=== PATIENT | female | born 1955 | race Caucasian/White ===

== ENCOUNTER 2019-01-02 09:59 | Observation (INO) | payer MEDICARE, MEDICAID ==
[2019-01-02] VITALS (19 sets, daily range): BP systolic 118–151; BP diastolic 56–93
[~2019-01-02] VITALS: Ht 167.6 cm; Wt 92.0 kg
[~2019-01-02 09:59] MED LIST: ATOR40TA PO; CHOL500049 PO; GLIP2.5T3 PO; LEVO100T9 PO; LOSA1TAB41 PO; METF500T20 PO; NAPR-1144 PO; famotidine 20mg tablet PO ONE; ringers solution, lacted 1,000 ML IV SCH
[2019-01-02 11:22] LABS: BASOPHILS # (AUTO) 0.1 X10'3 (0-0.2); BASOPHILS % (AUTO) 0.7 % (0-1); EOSINOPHILS # (AUTO) 0.4 X10'3 (0-0.9); EOSINOPHILS % (AUTO) 4.2 % (0-6); LYMPHOCYTES # (AUTO) 2.1 X10'3 (1.1-4.8); MEAN CORPUSCULAR HEMOGLOBIN 31.4 PG (27.0-31.0); MEAN CORPUSCULAR HGB CONC 33.7 g/dL (33.0-36.5); MEAN CORPUSCULAR VOLUME 93.1 FL (78-98); MEAN PLATELET VOLUME 10.8 FL (7.4-10.4); MONOCYTES # (AUTO) 0.8 X10'3 (0-0.9); MONOCYTES % (AUTO) 8.3 % (2-12); NEUTROPHILS # (AUTO) 6.5 X10'3 (1.8-7.7); NEUTROPHILS % (AUTO) 65.8 % (42-75); PRE OP HEMATOCRIT 38.1 % (35.0-45.0); PRE OP HEMOGLOBIN 12.8 g/dL (12.0-16.0); PRE OP PLATELET COUNT 253 X10'3 (140-440); RED BLOOD COUNT 4.09 X10'6 (4.20-5.60); RED CELL DISTRIBUTION WIDTH 14.2 % (11.5-14.5)
[2019-01-02 11:30] LABS: PRE OP PROTIME 10.3 SECONDS (9.0-12.0)
[2019-01-02 11:31] LABS: ALBUMIN 3.7 G/DL (3.4-5.0); ALKALINE PHOSPHATASE 52 IU/L (46-116); BLOOD UREA NITROGEN 33 MG/DL (7-18); BUN/CREATININE RATIO 28.9 (6.6-38.0); CHLORIDE 105 MMOL/L (99-107); CREATININE 1.14 MG/DL (0.40-0.90); PRE OP ALT 24 U/L (30-65); PRE OP ANION GAP 12 (8-16); PRE OP AST 20 U/L (10-37); PRE OP BILIRUB, TOTAL 0.3 MG/DL (0.0-1.0); PRE OP GLUCOSE 99 MG/DL (70-104); PRE OP POTASSIUM 3.4 MMOL/L (3.4-5.1); PRE OP SODIUM 142 MMOL/L (135-145); TOTAL CARBON DIOXIDE 25.5 MMOL/L (24-32); TOTAL PROTEIN 7.4 G/DL (6.4-8.2); eGFR 48 ML/MIN
[2019-01-02] MEDS ORDERED: cefazolin/dext.iso 2gm/100ml 100 ML IV ONE (11:40)
[2019-01-02] MEDS ORDERED: ceFAZolin 1,000 MG/D5W 50ML IVPB Premixed bag IV ONE (11:45)
[2019-01-02] MEDS ORDERED: cefazolin/dext.iso 2gm/50ml 50 ML IV ONE (11:50)
[2019-01-02 11:59] LABS: LARGE PLATELETS FEW; PLATELET ESTIMATE NORMAL
[2019-01-02] MEDS ORDERED: ceFAZolin 1000mg inj ONE ×2 (13:04→13:50)
[2019-01-02] MEDS ORDERED: BUPIVAcaine/PF 2.5 mg/ml (0.25%) 30ml vial ONE ×2 (13:04→13:50)
[2019-01-02] MEDS ORDERED: midazolam 2 mg/2 ml injection ONE (14:02)
[2019-01-02] MEDS ORDERED: fentaNYL/PF 50MCG/1 ML 2ML syringe ONE ×2 (14:02)
[2019-01-02] MEDS ORDERED: sevoflurane 250ml liquid IH ONE (14:30)
[2019-01-02] MEDS ORDERED: propofol inj 20 ML IV ONE (15:11)
[2019-01-02] MEDS ORDERED: ePHEDrine 50MG/ML INJ. ONE (15:11)
[2019-01-02] MEDS ORDERED: LIDOcaine 2% (20mg/ml) 5ml vial ONE (15:11)
[2019-01-02] MEDS ORDERED: ondansetron/PF 4mg/2ml inj IV PRN (15:35)
[2019-01-02] MEDS ORDERED: dextrose ORAL solution 15 GM/59 ML bottle PO PRN ×2 (15:45)
[2019-01-02] MEDS ORDERED: glucagon, human recombinant 1mg kit SUBCUT PRN (15:45)
[2019-01-02] MEDS ORDERED: dextrose 50%-water 50ml dispensing syringe IV PRN ×2 (15:45)
[2019-01-02] MEDS ORDERED: MESSAGE TO PHARMACY PO ONE (15:45)
[2019-01-02] MEDS ORDERED: insulin Lispro (HumaLOG) vial - multi-dose SQ SCH (15:45)
[2019-01-02] MEDS ORDERED: meperidine/PF 25mg/ml syringe ONE ×2 (16:00→16:20)
[2019-01-02] MEDS ORDERED: ceFAZolin inj. 1,000 MG in dextrose 5%-water 50ml 50 ML IV SCH (16:00)
--- NOTE | 2019-01-02 16:30 | NUR ---
PRIOR PACU NOTE WAS CHARTED AT THE WRONG TIME, PT ENTERED PACU AT 1515. PAIN WAS CONTROLLED DURING PACU STAY WITH DEMEROL, PAIN LEVEL TRENDING DOWN. VSS. TOLERATING PO FLUIDS WELL. REPORT WAS CALLED TO RECEIVING RN ON SURGICAL FLOOR, PT TRANSFERRED IN STABLE CONDITION. TEETH, BAG OF CLOTHING AND CELL PHONE WITH PT AT TIME OF TRANSFER.
--- NOTE | 2019-01-02 16:30 | NUR ---
Received report from JUSTA Osman in recovery and patient not to floor in room 360A in stable condition, wound vac plugged in and respirations even, VSS no distress will continue to monitor pt.
--- NOTE | 2019-01-02 16:30 | NUR ---
Received from OR via CHELO, accompanied by Anesthesiologist ARASH and report given by Anesthesiolgist. PT SLEEPY, OXYGENATING WELL ON 10 LPM O2 VIA MASK, NO RESP DISTRESS NOTED. PT HAS NO C/O PAIN OR NAUSEA AT THIS TIME. WOUND VAC DSG TO [employer], [facility] [employer]. SX SET TO 125, ORDERS IN EMR. LG GAUZE DSG TO LEFT ABDOMEN, CDI. PIV L WRIST PATENT. CHANGES NOTED TO EKG, REPORTED TO ANESTHESIA AND DR MCGUIRE. EKG DONE. PT TO STAY OVERNIGHT ON TELE MONITOR WHILE WAITING FOR HOME WOUND VAC. VSS.
[2019-01-02 17:16] LABS: HEMOGLOBIN A1C 5.8 % (4.5-6.2)
[2019-01-02] MEDS: Potassium Cl inj 20 MEQ in ringers solution, lacted 1,000 ML IV SCH (17:20)
[2019-01-02] MEDS ORDERED: ceFAZolin 1GM/D5W- ADD-VANTAGE 50 ML IV SCH (17:31)
[2019-01-02] MEDS: HYDROcodone/acetaminophen 10/325mg tab PO PRN ×2 (17:35→21:50)
--- NOTE | 2019-01-02 18:30 | NUR ---
Patient in room [facility] 360. I have received report from CHRISTOPHER MARR and had the opportunity to ask questions and assume patient care.
[2019-01-02] MEDS ORDERED: insulin glargine (Lantus) pen - multi-dose SQ SCH (21:00)
[2019-01-03] VITALS: BP 110/56
[2019-01-03] MEDS: Potassium Cl inj 20 MEQ in ringers solution, lacted 1,000 ML IV SCH ×2 (01:44→12:22)
[2019-01-03] MEDS: HYDROcodone/acetaminophen 10/325mg tab PO PRN ×2 (01:58→05:57)
--- NOTE | 2019-01-03 06:30 | NUR ---
Problems reprioritized. Patient report given, questions answered & plan of care reviewed with LOIDA MARR.
--- NOTE | 2019-01-03 06:30 | NUR ---
Patient in room [facility] 360. I have received report from Tania Marin RN and had the opportunity to ask questions and assume patient care.
[2019-01-03 08:00] VITALS: BP 114/51
[2019-01-03] MEDS ORDERED: losartan 50mg tablet PO SCH (08:00)
[2019-01-03] MEDS ORDERED: levoTHYROXINE 112mcg tablet PO SCH (08:00)
[2019-01-03] MEDS ORDERED: HYDROchlorothiazide 12.5mg capsule PO SCH (08:00)
[2019-01-03] MEDS ORDERED: atorvastatin 20mg tablet PO SCH (08:00)
[2019-01-03 09:30] VITALS: BP 124/55
[2019-01-03 11:00] VITALS: BP 107/40
[2019-01-03] MEDS ORDERED: HYDR-4353 PO (16:21)
--- NOTE | 2019-01-03 16:57 | NUR ---
reviewed discharge instructions and new Rx for Newton with pt, pt verbalized understanding. Written Rx for Newton given to pt. Home wound vac attached to pt and pt educated, verbalized understanding. Pt notified of need to call MD's for follow-up appointments and stated she would call them tomorrow. IV removed and pt removed from tele monitor. Pt dressed in clothes from home and escorted downstairs by PCT for discharge.
== END 2019-01-03 17:19 | disposition home health service (06) ==
LOC: PAS 09:59 → SUR 3N 16:50
PROVIDERS: ADMIT Surgery; ATTEND Surgery
DX: T81.31XA Disruption of external operation (surgical) wound, not elsewhere classified, initial encounter (principal); K80.20 Calculus of gallbladder without cholecystitis without obstruction
CPT/HCPCS: 36415; 49900; 80053; 82948; 83036; 85025; 85610; 85730; 87070; 87075; 87081; 93005; 96365; 96375; G0378; J0690; J2001; J2175; J2250; J2405; J2704; J3010; J3480; J3490; J7120; A4618; A6449; A6550; A7000; J1815; J7060

== ENCOUNTER 2019-01-20 09:10 | Day surgery (SDC) | payer MEDICARE, MEDICAID ==
[~2019-01-20 09:10] MED LIST changes: +HYDR-4353 PO; -famotidine 20mg tablet PO ONE; -ringers solution, lacted 1,000 ML IV SCH
[2019-01-20] MEDS ORDERED: LIDOcaine 2% 5ml jelly ONE ×2 (09:56→10:00)
== END 2019-01-20 11:35 | disposition home or self-care (01) ==
LOC: WOUND CARE 09:10
PROVIDERS: ATTEND Surgery
DX: T81.89XA Other complications of procedures, not elsewhere classified, initial encounter (principal); E11.622 Type 2 diabetes mellitus with other skin ulcer; L98.492 Non-pressure chronic ulcer of skin of other sites with fat layer exposed; E11.42 Type 2 diabetes mellitus with diabetic polyneuropathy; K80.20 Calculus of gallbladder without cholecystitis without obstruction; E03.9 Hypothyroidism, unspecified; Z86.19 Personal history of other infectious and parasitic diseases; Y83.8 Other surgical procedures as the cause of abnormal reaction of the patient, or of later complication, without mention of misadventure at the time of the procedure
CPT/HCPCS: 11045; 97605; A4456; A4663; A6021; A6154; A6212

== ENCOUNTER 2019-01-27 08:44 | Outpatient (CLI) | payer MEDICARE, MEDICAID | END 2019-01-27 10:25 | disposition home or self-care (01) | LOC: WOUND CARE 08:44 → EDSTATUS 09:00 → WOUND CARE 10:25 | PROVIDERS: ATTEND Surgery | DX: T81.89XD Other complications of procedures, not elsewhere classified, subsequent encounter (principal); E11.622 Type 2 diabetes mellitus with other skin ulcer; L98.492 Non-pressure chronic ulcer of skin of other sites with fat layer exposed; E11.42 Type 2 diabetes mellitus with diabetic polyneuropathy; K80.20 Calculus of gallbladder without cholecystitis without obstruction; E03.9 Hypothyroidism, unspecified; Z86.19 Personal history of other infectious and parasitic diseases; Y83.8 Other surgical procedures as the cause of abnormal reaction of the patient, or of later complication, without mention of misadventure at the time of the procedure | CPT/HCPCS: 82948; 97605; A4663 ==

== ENCOUNTER 2019-02-01 13:29 | Inpatient (IN) | payer MEDICARE, MEDICAID ==
[2019-02-01] VITALS (12 sets, daily range): BP systolic 92–137; BP diastolic 47–67
[~2019-02-01] VITALS: Ht 167.6 cm; Wt 88.6 kg
[2019-02-01 15:27] LABS: ALBUMIN 2.4 G/DL (3.4-5.0); ANION GAP 13 (8-16); BASOPHILS % (AUTO) 0.2 % (0-1); BLOOD UREA NITROGEN 34 MG/DL (7-18); BUN/CREATININE RATIO 19.4 (6.6-38.0); CALCIUM 9.6 MG/DL (8.5-10.1); CHLORIDE 103 MMOL/L (99-107); CREATININE 1.75 MG/DL (0.40-0.90); EOSINOPHILS # (AUTO) 0.1 X10'3 (0-0.9); EOSINOPHILS % (AUTO) 1.2 % (0-6); GLUCOSE 111 MG/DL (70-104); HEMATOCRIT 33.4 % (35.0-45.0); HEMOGLOBIN 11.1 g/dl (12.0-16.0); LYMPHOCYTES # (AUTO) 1.3 X10'3 (1.1-4.8); LYMPHOCYTES % (AUTO) 10.4 % (21-51); MEAN CORPUSCULAR HEMOGLOBIN 30.4 PG (27.0-31.0); MEAN CORPUSCULAR HGB CONC 33.2 g/dL (33.0-36.5); MEAN CORPUSCULAR VOLUME 91.4 FL (78-98); MEAN PLATELET VOLUME 8.9 FL (7.4-10.4); MONOCYTES # (AUTO) 0.9 X10'3 (0-0.9); MONOCYTES % (AUTO) 7.4 % (2-12); NEUTROPHILS # (AUTO) 10.2 X10'3 (1.8-7.7); NEUTROPHILS % (AUTO) 80.8 % (42-75); PLATELET COUNT 452 X10'3 (140-440); POTASSIUM 3.8 MMOL/L (3.5-5.1); RED BLOOD COUNT 3.65 X10'6 (4.20-5.60); RED CELL DISTRIBUTION WIDTH 14.1 % (11.5-14.5); SODIUM 140 MMOL/L (135-145); TOTAL CARBON DIOXIDE 24.2 MMOL/L (24-32); WHITE BLOOD COUNT 12.6 X10'3 (4.5-11.0); eGFR 29 ML/MIN
[2019-02-01 15:31] LABS: PARTIAL THROMBOPLASTIN TIME 25 SECONDS (22-32)
--- NOTE | 2019-02-01 16:32 | NUR ---
Received patient from admitting, vital signs stable, pt in bed comfortable, no distress, call light in reach. will continue to monitor.
[2019-02-01] MEDS: dextrose 5%-1/2 normal saline 1,000 ML IV SCH (16:55)
[2019-02-01] MEDS ORDERED: ringers solution, lacted 1,000 ML IV SCH (18:27)
[2019-02-01] MEDS ORDERED: labetalol 20mg/4ml (5mg/ml) syringe IV PRN (18:30)
[2019-02-01] MEDS ORDERED: morphine 4 MG/ML inj SYRINge IV PRN ×2 (18:30)
[2019-02-01] MEDS ORDERED: fentaNYL/PF 50MCG/1 ML 2ML syringe IV PRN (18:30)
[2019-02-01] MEDS ORDERED: enalaprilat dihydrate 2.5mg/2ml vial IV PRN (18:30)
[2019-02-01] MEDS ORDERED: ondansetron/PF 4mg/2ml inj IV PRN ×2 (18:30→19:55)
--- NOTE | 2019-02-01 18:36 | NUR ---
Report given to JUSTA Lee.
[2019-02-01] MEDS ORDERED: clindamycin phosphate 150mg/ml inj. ONE (18:45)
[2019-02-01] MEDS ORDERED: gentamicin 40 MG/1 ML inj ONE (18:45)
[2019-02-01 19:00] LABS: CLARITY,URINE CLEAR (Clear); COLOR,URINE YELLOW (Yellow); GLUCOSE, URINE NEGATIVE (Neg); KETONES,URINE NEGATIVE (Neg); LEUKOCYTE ESTERASE ,URINE NEGATIVE (Neg); NITRITES, URINE NEGATIVE (Neg); OCCULT BLOOD,URINE NEGATIVE (Neg); PH,URINE 5.5 (4.8-8.0); PROTEIN,URINE NEGATIVE (Neg); UA COLLECTION TYPE CLN CATCH MIDSTREAM; UROBILINOGEN,URINE 0.2 E.U/dL (0.2-1.0)
[2019-02-01] MEDS ORDERED: fentaNYL/PF 50MCG/1 ML 2ML syringe ONE (19:03)
[2019-02-01] MEDS ORDERED: midazolam 2 mg/2 ml injection ONE (19:04)
[2019-02-01] MEDS ORDERED: etomidate 2mg/ml inj. ONE ×3 (19:05→19:09)
[2019-02-01] MEDS ORDERED: sevoflurane 250ml liquid IH ONE (19:09)
[2019-02-01] MEDS ORDERED: ondansetron/PF 4mg/2ml inj ONE (19:09)
[2019-02-01] MEDS ORDERED: albumin (Human) 5% 250ml 250 ML IV ONE (19:37)
[2019-02-01] MEDS ORDERED: HYDROmorphone 1 mg/ml syringe IV PRN (19:55)
[2019-02-01] MEDS: piperacillin/tazo 4.5gm/100ml 100 ML IV SCH (20:00)
--- NOTE | 2019-02-01 20:00 | NUR ---
Received from OR via BED , accompanied by Anesthesiologist DR VASQUEZ and report given by Anesthesiolgist. PATIENT WAKING UP, V/S WNL, NEUROVASCULAR CHECKS INTACT, 20G PIV LUE, SCD ON, WV TO ABDOMEN CDI WITH 125 CONTINOUS SUCTION W/ NO LEAKS DETECTED,
[2019-02-01] MEDS: fentaNYL/PF 50MCG/1 ML 2ML syringe IV PRN ×2 (20:12→20:21)
--- NOTE | 2019-02-01 20:30 | NUR ---
PATIENT WAKING UP, V/S WNL, NEUROVASCULAR CHECKS INTACT, 20G PIV LUE, SCD ON, WV TO ABDOMEN CDI WITH 125 CONTINOUS SUCTION W/ NO LEAKS DETECTED, . TAKEN TO 344B WITH ALL BELONGINGS AND HOOKED UP TO MONITORS IN ROOM AND REPORT GIVEN TO SCORE CALLER WHO HAS TAKEN OVER PATIENT CARE. TURP
[2019-02-01] MEDS: HYDROcodone/acetaminophen 10/325mg tab PO PRN (22:35)
[2019-02-02] MEDS: normal saline 1000ml 1,000 ML IV SCH ×5 (00:19→16:35)
[2019-02-02] MEDS: dextrose 5%-1/2 normal saline 1,000 ML IV SCH (00:20)
[2019-02-02 04:00] VITALS: BP 116/74
[2019-02-02] MEDS: HYDROcodone/acetaminophen 10/325mg tab PO PRN ×5 (04:38→22:58)
[2019-02-02 06:30] VITALS: BP 101/61
--- NOTE | 2019-02-02 08:15 | NUR ---
Patient in room [facility] 344. I have received report from JUSTA Lee and had the opportunity to ask questions and assume patient care.
[2019-02-02 08:17] LABS: BASOPHILS % (AUTO) 0.4 % (0-1); EOSINOPHILS # (AUTO) 0.3 X10'3 (0-0.9); EOSINOPHILS % (AUTO) 3.1 % (0-6); HEMATOCRIT 29.7 % (35.0-45.0); HEMOGLOBIN 9.9 g/dl (12.0-16.0); LYMPHOCYTES # (AUTO) 2.1 X10'3 (1.1-4.8); LYMPHOCYTES % (AUTO) 22.3 % (21-51); MEAN CORPUSCULAR HEMOGLOBIN 30.5 PG (27.0-31.0); MEAN CORPUSCULAR HGB CONC 33.2 g/dL (33.0-36.5); MEAN PLATELET VOLUME 8.9 FL (7.4-10.4); MONOCYTES # (AUTO) 0.8 X10'3 (0-0.9); MONOCYTES % (AUTO) 9.1 % (2-12); NEUTROPHILS % (AUTO) 65.1 % (42-75); PLATELET COUNT 364 X10'3 (140-440); RED BLOOD COUNT 3.23 X10'6 (4.20-5.60); RED CELL DISTRIBUTION WIDTH 13.5 % (11.5-14.5); WHITE BLOOD COUNT 9.3 X10'3 (4.5-11.0)
[2019-02-02 08:33] LABS: ALANINE AMINOTRANSFERASE 81 U/L (12-78); ALBUMIN 2.3 G/DL (3.4-5.0); ALBUMIN/GLOBULIN RATIO 0.6 (1.1-1.5); ALKALINE PHOSPHATASE 68 IU/L (46-116); ANION GAP 11 (8-16); ASPARTATE AMINO TRANSFERASE 76 U/L (10-37); BILIRUBIN,TOTAL 0.3 MG/DL (0.1-1.0); BLOOD UREA NITROGEN 26 MG/DL (7-18); BUN/CREATININE RATIO 17.1 (6.6-38.0); CALCIUM 7.7 MG/DL (8.5-10.1); CHLORIDE 108 MMOL/L (99-107); CREATININE 1.52 MG/DL (0.40-0.90); GLUCOSE 99 MG/DL (70-104); POTASSIUM 4.1 MMOL/L (3.5-5.1); SODIUM 144 MMOL/L (135-145); TOTAL CARBON DIOXIDE 25.3 MMOL/L (24-32); TOTAL PROTEIN 6.4 G/DL (6.4-8.2); eGFR 35 ML/MIN
--- NOTE | 2019-02-02 08:34 | NUR ---
Patient very upset that she has not received her breakfast tray. I advised patient that I called down to dietary and they are aware she is upset that she has not gotten her breakfast tray. I asked them to send it up gustavo. Patient states " I am starving to , I don't know why they said I was nothing by mouth when I had a turkey sandwich last night. Also, the nurse before you at ten minutes to 8 said she ordered my breakfast and is still is not here. I advised patient that I asked the kitchen to send tray up GUSTAVO and I could not give a specific time. I advised patient that if the tray was not up her by 0845 she could call me back in the room and let me know. Patient is very upset stated " It took 10 nurses to even get crackers this morning, you are starving me to this hospital sucks"
[2019-02-02] MEDS: piperacillin/tazo 4.5gm/100ml 100 ML IV SCH ×2 (09:28→20:08)
[2019-02-02 11:00] VITALS: BP 99/53
--- NOTE | 2019-02-02 16:29 | NUR ---
Pt admit with abdominal wound infection s/p drainage of seroma. Pt now s/p I&D and continues with wound VAC. Pt seen at [facility] provided with written and verbal protein education with CHRISTOPHER contact information. Pt currently on a CHO controlled diet documented with 75-100% PO intake meeting nutrient needs. Pt with food requests for dinner tonight and lunch tomorrow that were d/w dietary. [facility] 02/01. Will continue to follow. Recommendations: 1) Continue CHO controlled diet 2) Wt per rx Addendum: 02/02/19 at [address] Amended: Links added.
--- NOTE | 2019-02-02 18:10 | NUR ---
Problems reprioritized. Patient report given, questions answered & plan of care reviewed with JUSTA Hernadez.
[2019-02-02 18:30] VITALS: BP 128/72
--- NOTE | 2019-02-02 18:33 | NUR ---
Received report from Joycelyn MARR pt is awake and alert requesting a roast beef sandwich expressing frustration that she did not get the sandwich with dinner when she requested it earlier in the day, call light and items of freq use within reach.
[2019-02-02] MEDS: lactobacillus rhamnosus 10,000 MMU CELLS/CAPSULE PO SCH (20:07)
[2019-02-03 00:23] VITALS: BP 109/50
[2019-02-03] MEDS: HYDROcodone/acetaminophen 10/325mg tab PO PRN ×2 (02:58→07:49)
--- NOTE | 2019-02-03 06:43 | NUR ---
Gave report to Angelina MARR pt is resting on RA in no apparent distress, call light and items of freq use within reach.
[2019-02-03 07:10] VITALS: BP 131/53
[2019-02-03] MEDS: lactobacillus rhamnosus 10,000 MMU CELLS/CAPSULE PO SCH (07:48)
[2019-02-03] MEDS: piperacillin/tazo 4.5gm/100ml 100 ML IV SCH (07:48)
[2019-02-03 11:00] VITALS: BP 96/41
[2019-02-03] MEDS ORDERED: AMOX-422 PO (13:33)
--- NOTE | 2019-02-03 15:34 | NUR ---
Patient discharged home with family member. Stable and appropriate. All belongings taken from room. IV removed. New prescription called into [facility] [address] Wound vac changed to patients home wound vac.
== END 2019-02-03 15:17 | disposition home health service (06) | DRG 857 ==
LOC: SUR 3N 14:02
PROVIDERS: ADMIT Surgery; ATTEND Surgery
PROC: 0HD7XZZ Extraction of Abdomen Skin, External Approach (ICD-10-PCS; 2019-02-01)
PROC: 0W9F0ZZ Drainage of Abdominal Wall, Open Approach (ICD-10-PCS; principal; 2019-02-01 19:09)
DX: T81.41XA Infection following a procedure, superficial incisional surgical site, initial encounter (principal); T81.31XA Disruption of external operation (surgical) wound, not elsewhere classified, initial encounter; L76.34 Postprocedural seroma of skin and subcutaneous tissue following other procedure; B19.20 Unspecified viral hepatitis C without hepatic coma; E03.9 Hypothyroidism, unspecified; Y83.8 Other surgical procedures as the cause of abnormal reaction of the patient, or of later complication, without mention of misadventure at the time of the procedure; E11.42 Type 2 diabetes mellitus with diabetic polyneuropathy; I10 Essential (primary) hypertension; Z79.899 Other long term (current) drug therapy; Y92.89 Other specified places as the place of occurrence of the external cause
CPT/HCPCS: 36415; 71045; 76937; 80048; 80053; 81003; 82948; 85025; 85610; 85730; 87081; 93005; 99285; A4618; A6550; A7000; G0378; J1580; J2250; J2405; J2543; J3010; J3490; J7030; J7120; P9045

== ENCOUNTER 2019-02-10 08:51 | Day surgery (SDC) | payer MEDICARE, MEDICAID ==
[~2019-02-10 08:51] MED LIST changes: +AMOX-422 PO; -HYDR-4353 PO
== END 2019-02-10 11:56 | disposition home or self-care (01) ==
LOC: WOUND CARE 08:51
PROVIDERS: ATTEND Surgery
DX: T81.89XD Other complications of procedures, not elsewhere classified, subsequent encounter (principal); E11.622 Type 2 diabetes mellitus with other skin ulcer; L98.492 Non-pressure chronic ulcer of skin of other sites with fat layer exposed; E11.42 Type 2 diabetes mellitus with diabetic polyneuropathy; K80.20 Calculus of gallbladder without cholecystitis without obstruction; E03.9 Hypothyroidism, unspecified; Z86.19 Personal history of other infectious and parasitic diseases; Y83.8 Other surgical procedures as the cause of abnormal reaction of the patient, or of later complication, without mention of misadventure at the time of the procedure
CPT/HCPCS: 36416; 82948; 97597; A4456; A4663

== ENCOUNTER 2019-02-17 08:50 | Outpatient (CLI) | payer MEDICARE, MEDICAID ==
[~2019-02-17 08:50] MED LIST changes: -AMOX-422 PO
[2019-02-17] MEDS ORDERED: LIDOcaine 2% 5ml jelly ONE ×2 (09:41→09:48)
== END 2019-02-17 11:20 | disposition home or self-care (01) ==
LOC: WOUND CARE 08:50 → EDSTATUS 09:00 → WOUND CARE 11:20
PROVIDERS: ATTEND Surgery
DX: T81.89XD Other complications of procedures, not elsewhere classified, subsequent encounter (principal); E11.622 Type 2 diabetes mellitus with other skin ulcer; L98.492 Non-pressure chronic ulcer of skin of other sites with fat layer exposed; E11.42 Type 2 diabetes mellitus with diabetic polyneuropathy; K80.20 Calculus of gallbladder without cholecystitis without obstruction; E03.9 Hypothyroidism, unspecified; Z86.19 Personal history of other infectious and parasitic diseases; Z79.899 Other long term (current) drug therapy; Y83.8 Other surgical procedures as the cause of abnormal reaction of the patient, or of later complication, without mention of misadventure at the time of the procedure
CPT/HCPCS: 36416; 82948; 97605; A4456; A4663

== ENCOUNTER 2019-02-24 09:00 | Outpatient (CLI) | payer MEDICARE, MEDICAID ==
[2019-02-24] MEDS ORDERED: LIDOcaine 2% 5ml jelly ONE (09:32)
== END 2019-02-24 11:35 | disposition home or self-care (01) ==
LOC: WOUND CARE 09:00 → EDSTATUS 09:00 → WOUND CARE 11:35
PROVIDERS: ATTEND Surgery
DX: T81.89XD Other complications of procedures, not elsewhere classified, subsequent encounter (principal); E11.622 Type 2 diabetes mellitus with other skin ulcer; L98.492 Non-pressure chronic ulcer of skin of other sites with fat layer exposed; E11.42 Type 2 diabetes mellitus with diabetic polyneuropathy; K80.20 Calculus of gallbladder without cholecystitis without obstruction; E03.9 Hypothyroidism, unspecified; Z86.19 Personal history of other infectious and parasitic diseases; Z79.899 Other long term (current) drug therapy; Y83.8 Other surgical procedures as the cause of abnormal reaction of the patient, or of later complication, without mention of misadventure at the time of the procedure
CPT/HCPCS: 36416; 82948; 97605; A4456; A4663

== ENCOUNTER 2019-03-03 08:58 | Outpatient (CLI) | payer MEDICARE, MEDICAID ==
[2019-03-03] MEDS ORDERED: LIDOcaine 2% 5ml jelly ONE (09:38)
== END 2019-03-03 10:53 | disposition home or self-care (01) ==
LOC: WOUND CARE 08:58 → EDSTATUS 09:00 → WOUND CARE 10:53
PROVIDERS: ATTEND Surgery
DX: T81.89XD Other complications of procedures, not elsewhere classified, subsequent encounter (principal); E11.622 Type 2 diabetes mellitus with other skin ulcer; L98.492 Non-pressure chronic ulcer of skin of other sites with fat layer exposed; E11.42 Type 2 diabetes mellitus with diabetic polyneuropathy; K80.20 Calculus of gallbladder without cholecystitis without obstruction; E03.9 Hypothyroidism, unspecified; Z86.19 Personal history of other infectious and parasitic diseases; Z79.899 Other long term (current) drug therapy; Y83.8 Other surgical procedures as the cause of abnormal reaction of the patient, or of later complication, without mention of misadventure at the time of the procedure
CPT/HCPCS: 36416; 82948; 87070; 87075; 87102; 97605; A4456; A4663

== ENCOUNTER 2019-03-10 09:00 | Outpatient (CLI) | payer MEDICARE, MEDICAID ==
[2019-03-10] MEDS ORDERED: LIDOcaine 2% 5ml jelly ONE (09:36)
== END 2019-03-10 10:50 | disposition home or self-care (01) ==
LOC: EDSTATUS 09:00 → WOUND CARE 09:00
PROVIDERS: ATTEND Surgery
DX: T81.89XD Other complications of procedures, not elsewhere classified, subsequent encounter (principal); E11.622 Type 2 diabetes mellitus with other skin ulcer; L98.492 Non-pressure chronic ulcer of skin of other sites with fat layer exposed; E11.42 Type 2 diabetes mellitus with diabetic polyneuropathy; K80.20 Calculus of gallbladder without cholecystitis without obstruction; E03.9 Hypothyroidism, unspecified; I10 Essential (primary) hypertension; Z86.19 Personal history of other infectious and parasitic diseases; Z79.899 Other long term (current) drug therapy; Y83.8 Other surgical procedures as the cause of abnormal reaction of the patient, or of later complication, without mention of misadventure at the time of the procedure
CPT/HCPCS: 36416; 82948; 97605; A4456; A4663

== ENCOUNTER 2019-03-17 08:58 | Day surgery (SDC) | payer MEDICARE, MEDICAID ==
[2019-03-17] MEDS ORDERED: LIDOcaine 2% 5ml jelly ONE (09:27)
== END 2019-03-17 10:35 | disposition home or self-care (01) ==
LOC: WOUND CARE 08:58
PROVIDERS: ATTEND Surgery
DX: T81.89XD Other complications of procedures, not elsewhere classified, subsequent encounter (principal); E11.622 Type 2 diabetes mellitus with other skin ulcer; L98.492 Non-pressure chronic ulcer of skin of other sites with fat layer exposed; E11.42 Type 2 diabetes mellitus with diabetic polyneuropathy; K80.20 Calculus of gallbladder without cholecystitis without obstruction; E03.9 Hypothyroidism, unspecified; I10 Essential (primary) hypertension; Z86.19 Personal history of other infectious and parasitic diseases; Z79.899 Other long term (current) drug therapy; Y83.8 Other surgical procedures as the cause of abnormal reaction of the patient, or of later complication, without mention of misadventure at the time of the procedure
CPT/HCPCS: 36416; 82948; 97597; A4663

== ENCOUNTER 2019-03-31 08:44 | Day surgery (SDC) | payer MEDICARE, MEDICAID ==
[2019-03-31] MEDS ORDERED: LIDOcaine/PRILOcaine 5gm cream TP ONE (09:10)
== END 2019-03-31 10:33 | disposition home or self-care (01) ==
LOC: WOUND CARE 08:44
PROVIDERS: ATTEND Surgery
DX: T81.89XD Other complications of procedures, not elsewhere classified, subsequent encounter (principal); E11.622 Type 2 diabetes mellitus with other skin ulcer; L98.492 Non-pressure chronic ulcer of skin of other sites with fat layer exposed; E11.42 Type 2 diabetes mellitus with diabetic polyneuropathy; K80.20 Calculus of gallbladder without cholecystitis without obstruction; E03.9 Hypothyroidism, unspecified; I10 Essential (primary) hypertension; Z86.19 Personal history of other infectious and parasitic diseases; Z79.899 Other long term (current) drug therapy; Y83.8 Other surgical procedures as the cause of abnormal reaction of the patient, or of later complication, without mention of misadventure at the time of the procedure
CPT/HCPCS: 36416; 82948; 97597; A4456; A4663

== ENCOUNTER 2019-04-07 08:42 | Day surgery (SDC) | payer MEDICARE, MEDICAID ==
[2019-04-07] MEDS ORDERED: LIDOcaine 2% 5ml jelly ONE (09:16)
== END 2019-04-07 10:20 | disposition home or self-care (01) ==
LOC: WOUND CARE 08:42
PROVIDERS: ATTEND Surgery
DX: T81.89XD Other complications of procedures, not elsewhere classified, subsequent encounter (principal); E11.622 Type 2 diabetes mellitus with other skin ulcer; L98.492 Non-pressure chronic ulcer of skin of other sites with fat layer exposed; E11.42 Type 2 diabetes mellitus with diabetic polyneuropathy; K80.20 Calculus of gallbladder without cholecystitis without obstruction; E03.9 Hypothyroidism, unspecified; I10 Essential (primary) hypertension; Z86.19 Personal history of other infectious and parasitic diseases; Z79.899 Other long term (current) drug therapy; Y83.8 Other surgical procedures as the cause of abnormal reaction of the patient, or of later complication, without mention of misadventure at the time of the procedure
CPT/HCPCS: 36416; 82948; 97605; A4663

== ENCOUNTER 2019-04-14 08:50 | Day surgery (SDC) | payer MEDICARE, MEDICAID ==
[2019-04-14] MEDS ORDERED: LIDOcaine 2% 5ml jelly ONE ×2 (09:23)
== END 2019-04-14 10:50 | disposition home or self-care (01) ==
LOC: WOUND CARE 08:50
PROVIDERS: ATTEND Surgery
DX: T81.89XD Other complications of procedures, not elsewhere classified, subsequent encounter (principal); E11.622 Type 2 diabetes mellitus with other skin ulcer; L98.492 Non-pressure chronic ulcer of skin of other sites with fat layer exposed; E11.42 Type 2 diabetes mellitus with diabetic polyneuropathy; K80.20 Calculus of gallbladder without cholecystitis without obstruction; E03.9 Hypothyroidism, unspecified; I10 Essential (primary) hypertension; Z86.19 Personal history of other infectious and parasitic diseases; Z79.899 Other long term (current) drug therapy; Y83.8 Other surgical procedures as the cause of abnormal reaction of the patient, or of later complication, without mention of misadventure at the time of the procedure
CPT/HCPCS: 82948; 97597; A4456; A4663

== ENCOUNTER 2019-04-20 08:50 | Day surgery (SDC) | payer MEDICARE, MEDICAID ==
[2019-04-20] MEDS ORDERED: LIDOcaine/PRILOcaine 5gm cream TP ONE (09:01)
== END 2019-04-20 10:22 | disposition home or self-care (01) ==
LOC: WOUND CARE 08:50
PROVIDERS: ATTEND Nurse Practitioner Family
DX: T81.89XD Other complications of procedures, not elsewhere classified, subsequent encounter (principal); E11.622 Type 2 diabetes mellitus with other skin ulcer; L98.492 Non-pressure chronic ulcer of skin of other sites with fat layer exposed; E11.42 Type 2 diabetes mellitus with diabetic polyneuropathy; K80.20 Calculus of gallbladder without cholecystitis without obstruction; E03.9 Hypothyroidism, unspecified; I10 Essential (primary) hypertension; Z86.19 Personal history of other infectious and parasitic diseases; Z79.899 Other long term (current) drug therapy; Y83.8 Other surgical procedures as the cause of abnormal reaction of the patient, or of later complication, without mention of misadventure at the time of the procedure
CPT/HCPCS: 36416; 82948; 97597; A4456; A4663

== ENCOUNTER 2019-04-28 08:50 | Day surgery (SDC) | payer MEDICARE, MEDICAID ==
[2019-04-28] MEDS ORDERED: LIDOcaine 2% 5ml jelly ONE ×2 (09:42)
== END 2019-04-28 10:42 | disposition home or self-care (01) ==
LOC: WOUND CARE 08:50
PROVIDERS: ATTEND Surgery
DX: T81.89XD Other complications of procedures, not elsewhere classified, subsequent encounter (principal); E11.622 Type 2 diabetes mellitus with other skin ulcer; L98.492 Non-pressure chronic ulcer of skin of other sites with fat layer exposed; E11.42 Type 2 diabetes mellitus with diabetic polyneuropathy; I10 Essential (primary) hypertension; E03.9 Hypothyroidism, unspecified; K80.20 Calculus of gallbladder without cholecystitis without obstruction; Z79.899 Other long term (current) drug therapy; Z86.19 Personal history of other infectious and parasitic diseases; Y83.8 Other surgical procedures as the cause of abnormal reaction of the patient, or of later complication, without mention of misadventure at the time of the procedure
CPT/HCPCS: 36416; 82948; 97597; A4456; A4663; A6250

== ENCOUNTER 2019-05-12 08:45 | Day surgery (SDC) | payer MEDICARE, MEDICAID | END 2019-05-12 11:07 | disposition home or self-care (01) | LOC: WOUND CARE 08:45 | PROVIDERS: ATTEND Surgery | DX: T81.89XD Other complications of procedures, not elsewhere classified, subsequent encounter (principal); E11.622 Type 2 diabetes mellitus with other skin ulcer; L98.492 Non-pressure chronic ulcer of skin of other sites with fat layer exposed; E11.42 Type 2 diabetes mellitus with diabetic polyneuropathy; I10 Essential (primary) hypertension; E03.9 Hypothyroidism, unspecified; K80.20 Calculus of gallbladder without cholecystitis without obstruction; Z79.899 Other long term (current) drug therapy; Z86.19 Personal history of other infectious and parasitic diseases; Y83.8 Other surgical procedures as the cause of abnormal reaction of the patient, or of later complication, without mention of misadventure at the time of the procedure | CPT/HCPCS: 36416; 82948; 97597; A4663 ==

== ENCOUNTER 2019-05-19 08:57 | Day surgery (SDC) | payer MEDICARE, MEDICAID | END 2019-05-19 09:55 | disposition home or self-care (01) | LOC: WOUND CARE 08:57 | PROVIDERS: ATTEND Surgery | DX: T81.89XD Other complications of procedures, not elsewhere classified, subsequent encounter (principal); E11.622 Type 2 diabetes mellitus with other skin ulcer; L98.492 Non-pressure chronic ulcer of skin of other sites with fat layer exposed; E11.42 Type 2 diabetes mellitus with diabetic polyneuropathy; I10 Essential (primary) hypertension; E03.9 Hypothyroidism, unspecified; K80.20 Calculus of gallbladder without cholecystitis without obstruction; Z79.899 Other long term (current) drug therapy; Z86.19 Personal history of other infectious and parasitic diseases; Y83.8 Other surgical procedures as the cause of abnormal reaction of the patient, or of later complication, without mention of misadventure at the time of the procedure | CPT/HCPCS: 36416; 82948; 97597; A4663; A6021; A6212 ==

== ENCOUNTER 2019-05-26 08:46 | Day surgery (SDC) | payer MEDICARE, MEDICAID ==
[2019-05-26] MEDS ORDERED: LIDOcaine 2% 5ml jelly ONE (09:13)
== END 2019-05-26 10:22 | disposition home or self-care (01) ==
LOC: WOUND CARE 08:46
PROVIDERS: ATTEND Surgery
DX: T81.89XD Other complications of procedures, not elsewhere classified, subsequent encounter (principal); E11.622 Type 2 diabetes mellitus with other skin ulcer; L98.492 Non-pressure chronic ulcer of skin of other sites with fat layer exposed; E11.42 Type 2 diabetes mellitus with diabetic polyneuropathy; I10 Essential (primary) hypertension; E03.9 Hypothyroidism, unspecified; K80.20 Calculus of gallbladder without cholecystitis without obstruction; Z79.899 Other long term (current) drug therapy; Z86.19 Personal history of other infectious and parasitic diseases; Y83.8 Other surgical procedures as the cause of abnormal reaction of the patient, or of later complication, without mention of misadventure at the time of the procedure
CPT/HCPCS: 36416; 82948; G0463; A4663; A6021; A6154; A6212

== ENCOUNTER 2019-06-02 08:53 | Day surgery (SDC) | payer MEDICARE, MEDICAID ==
[2019-06-02] MEDS ORDERED: LIDOcaine 2% 5ml jelly ONE (09:15)
== END 2019-06-02 10:19 | disposition home or self-care (01) ==
LOC: WOUND CARE 08:53
PROVIDERS: ATTEND Surgery
DX: T81.89XD Other complications of procedures, not elsewhere classified, subsequent encounter (principal); E11.622 Type 2 diabetes mellitus with other skin ulcer; L98.492 Non-pressure chronic ulcer of skin of other sites with fat layer exposed; E11.42 Type 2 diabetes mellitus with diabetic polyneuropathy; I10 Essential (primary) hypertension; E03.9 Hypothyroidism, unspecified; K80.20 Calculus of gallbladder without cholecystitis without obstruction; Z79.899 Other long term (current) drug therapy; Z86.19 Personal history of other infectious and parasitic diseases; Y83.8 Other surgical procedures as the cause of abnormal reaction of the patient, or of later complication, without mention of misadventure at the time of the procedure
CPT/HCPCS: 36416; 82948; 97597

== ENCOUNTER 2019-06-09 08:47 | Day surgery (SDC) | payer MEDICARE, MEDICAID | END 2019-06-09 10:15 | disposition home or self-care (01) | LOC: WOUND CARE 08:47 | PROVIDERS: ATTEND Surgery | DX: T81.89XD Other complications of procedures, not elsewhere classified, subsequent encounter (principal); E11.622 Type 2 diabetes mellitus with other skin ulcer; L98.492 Non-pressure chronic ulcer of skin of other sites with fat layer exposed; E11.42 Type 2 diabetes mellitus with diabetic polyneuropathy; I10 Essential (primary) hypertension; E03.9 Hypothyroidism, unspecified; K80.20 Calculus of gallbladder without cholecystitis without obstruction; Z79.899 Other long term (current) drug therapy; Z86.19 Personal history of other infectious and parasitic diseases; Y83.8 Other surgical procedures as the cause of abnormal reaction of the patient, or of later complication, without mention of misadventure at the time of the procedure | CPT/HCPCS: 36416; 82948; 97597 ==

== ENCOUNTER 2019-06-16 08:45 | Day surgery (SDC) | payer MEDICARE, MEDICAID ==
[2019-06-16] MEDS ORDERED: LIDOcaine 2% 5ml jelly ONE (09:33)
== END 2019-06-16 10:15 | disposition home or self-care (01) ==
LOC: WOUND CARE 08:45
PROVIDERS: ATTEND Surgery
DX: T81.89XD Other complications of procedures, not elsewhere classified, subsequent encounter (principal); E11.622 Type 2 diabetes mellitus with other skin ulcer; L98.492 Non-pressure chronic ulcer of skin of other sites with fat layer exposed; E11.42 Type 2 diabetes mellitus with diabetic polyneuropathy; I10 Essential (primary) hypertension; E03.9 Hypothyroidism, unspecified; K80.20 Calculus of gallbladder without cholecystitis without obstruction; Z79.899 Other long term (current) drug therapy; Z86.19 Personal history of other infectious and parasitic diseases; Y83.8 Other surgical procedures as the cause of abnormal reaction of the patient, or of later complication, without mention of misadventure at the time of the procedure
CPT/HCPCS: 36416; 82948; 97597

== ENCOUNTER 2019-06-30 08:59 | Day surgery (SDC) | payer MEDICARE, MEDICAID | END 2019-06-30 09:52 | disposition home or self-care (01) | LOC: WOUND CARE 08:59 | PROVIDERS: ATTEND Surgery | DX: T81.89XD Other complications of procedures, not elsewhere classified, subsequent encounter (principal); E11.622 Type 2 diabetes mellitus with other skin ulcer; L98.492 Non-pressure chronic ulcer of skin of other sites with fat layer exposed; E11.42 Type 2 diabetes mellitus with diabetic polyneuropathy; I10 Essential (primary) hypertension; E03.9 Hypothyroidism, unspecified; K80.20 Calculus of gallbladder without cholecystitis without obstruction; Z79.899 Other long term (current) drug therapy; Z86.19 Personal history of other infectious and parasitic diseases; Y83.8 Other surgical procedures as the cause of abnormal reaction of the patient, or of later complication, without mention of misadventure at the time of the procedure | CPT/HCPCS: 36416; 82948; 97597; A4663; A6021; A6212 ==

== ENCOUNTER 2019-07-07 08:52 | Outpatient (CLI) | payer MEDICARE, MEDICAID | END 2019-07-07 09:55 | disposition home or self-care (01) | LOC: WOUND CARE 08:52 → EDSTATUS 09:00 → WOUND CARE 09:55 | PROVIDERS: ATTEND Surgery | DX: T81.89XD Other complications of procedures, not elsewhere classified, subsequent encounter (principal); E11.622 Type 2 diabetes mellitus with other skin ulcer; L98.492 Non-pressure chronic ulcer of skin of other sites with fat layer exposed; E11.42 Type 2 diabetes mellitus with diabetic polyneuropathy; I10 Essential (primary) hypertension; E03.9 Hypothyroidism, unspecified; K80.20 Calculus of gallbladder without cholecystitis without obstruction; Z79.899 Other long term (current) drug therapy; Z86.19 Personal history of other infectious and parasitic diseases; Y83.8 Other surgical procedures as the cause of abnormal reaction of the patient, or of later complication, without mention of misadventure at the time of the procedure | CPT/HCPCS: A4663; A6212; G0463 ==

== ENCOUNTER 2020-09-05 08:57 | Observation (INO) | payer MEDICARE, MEDICAID ==
[2020-08-30 17:03] LABS: BASOPHILS # (AUTO) 0.1 X10'3 (0-0.2); BASOPHILS % (AUTO) 0.6 % (0-1); EOSINOPHILS # (AUTO) 0.4 X10'3 (0-0.9); EOSINOPHILS % (AUTO) 3.9 % (0-6); LYMPHOCYTES # (AUTO) 2.3 X10'3 (1.1-4.8); LYMPHOCYTES % (AUTO) 21.9 % (21-51); MEAN CORPUSCULAR HEMOGLOBIN 29.2 PG (27.0-31.0); MEAN CORPUSCULAR HGB CONC 32.9 g/dL (33.0-36.5); MEAN CORPUSCULAR VOLUME 88.6 FL (78-98); MONOCYTES # (AUTO) 0.9 X10'3 (0-0.9); MONOCYTES % (AUTO) 8.2 % (2-12); NEUTROPHILS % (AUTO) 65.4 % (42-75); PRE OP HEMATOCRIT 36.6 % (35.0-45.0); PRE OP PLATELET COUNT 272 X10'3 (140-440); RED BLOOD COUNT 4.13 X10'6 (4.20-5.60)
[2020-08-30 17:17] LABS: PRE OP PROTIME 10.3 SECONDS (9.0-12.0)
[2020-08-30 17:24] LABS: ALBUMIN 3.6 G/DL (3.4-5.0); ALBUMIN/GLOBULIN RATIO 0.9 (1.1-1.5); ALKALINE PHOSPHATASE 71 IU/L (46-116); BLOOD UREA NITROGEN 20 MG/DL (7-18); BUN/CREATININE RATIO 20.2 (6.6-38.0); CALCIUM 9.3 MG/DL (8.5-10.1); CHLORIDE 106 MMOL/L (99-107); CREATININE 0.99 MG/DL (0.40-0.90); PRE OP ALT 20 U/L (30-65); PRE OP ANION GAP 11 (8-16); PRE OP AST 13 U/L (10-37); PRE OP BILIRUB, TOTAL 0.2 MG/DL (0.0-1.0); PRE OP GLUCOSE 106 MG/DL (70-104); PRE OP SODIUM 142 MMOL/L (135-145); TOTAL CARBON DIOXIDE 24.8 MMOL/L (24-32); TOTAL PROTEIN 7.6 G/DL (6.4-8.2); eGFR 57 ML/MIN
[2020-08-30 17:27] LABS: PRE OP POTASSIUM 3.1 MMOL/L (3.4-5.1)
[2020-09-05] VITALS (23 sets, daily range): BP systolic 100–142; BP diastolic 44–70
[~2020-09-05] VITALS: Ht 167.6 cm; Wt 83.9 kg
[~2020-09-05 08:57] MED LIST changes: +ALBU18HF2 INH; +ASPI-1397 PO; +CARV6.253 PO; +CLOP75TA34 PO; +DOCUMENT DATE & TIME OF BETA-BLOCKER PO ONE; +FLUT100D IH; +FURO20TA4 PO; +METF-900 PO; -METF500T20 PO; -NAPR-1144 PO; +NITR0.4T51 SL; +albuterol 2.5 MG/3 ML nebule NEB ONE; +famotidine 20mg tablet PO ONE; +fish oil; +ringers solution, lacted 1,000 ML IV SCH
[2020-09-05] MEDS ORDERED: cefazolin/dext.iso 2gm/100ml 100 ML IV ONE (09:05)
[2020-09-05 10:07] LABS: ISTAT CREATININE 0.9 mg/dL (0.6-1.1); ISTAT HGB 11.2 g/dl (12.0-16.0); ISTAT IONIZED CALCIUM 1.26 mmol/L (1.03-1.32); ISTAT K 3.8 mmol/L (3.5-5.1); POC BUN/CREATININE RATIO 22.2 (6.6-38.0)
[2020-09-05] MEDS ORDERED: BUPIVAcaine/PF 2.5 mg/ml (0.25%) 30ml vial ONE (12:41)
[2020-09-05] MEDS ORDERED: rocuronium 10mg/ml inj IV ONE ×2 (12:47→12:49)
[2020-09-05] MEDS ORDERED: fentaNYL /PF 50mcg/ml 5ml ampule ONE (12:47)
[2020-09-05] MEDS ORDERED: propofol inj 20 ML IV ONE (12:47)
[2020-09-05] MEDS ORDERED: midazolam 1 mg/ML 2ml injection ONE (12:47)
[2020-09-05] MEDS ORDERED: acetaminophen 1000 MG/100ml vial IV ONE (12:49)
[2020-09-05] MEDS ORDERED: sevoflurane 250ml liquid IH ONE (12:49)
[2020-09-05] MEDS ORDERED: meperidine/PF 25mg/ml syringe IV PRN ×2 (14:00)
[2020-09-05] MEDS ORDERED: morphine 4 MG/ML inj SYRINge IV PRN (14:00)
[2020-09-05] MEDS ORDERED: ondansetron/PF 4mg/2ml inj IV PRN ×2 (14:00→16:40)
[2020-09-05] MEDS ORDERED: morphine 2 MG/ML inj. syringe IV PRN (14:00)
[2020-09-05] MEDS ORDERED: proCHLORperazine 10 MG/2 ml inj IV PRN (14:00)
[2020-09-05] MEDS ORDERED: ringers solution, lacted 1,000 ML IV SCH (14:00)
[2020-09-05] MEDS ORDERED: ondansetron/PF 4mg/2ml inj ONE (16:08)
[2020-09-05] MEDS ORDERED: neostigmine methylsulfate 1 MG/ML 10ml vial ONE (16:09)
[2020-09-05] MEDS ORDERED: dexamethasone sod phosphate 4mg/ml inj. ONE (16:09)
[2020-09-05] MEDS ORDERED: glycopyrrolate 0.2mg/ml inj ONE (16:09)
--- NOTE | 2020-09-05 16:20 | NUR ---
ADMITTED TO PACU FROM OR ACCOMPANIED BY ANESTHESIA. INTIAL PHYSICAL ASSESSMENT DONE AND RECORDED. REPORT RECEIVED FROM ANESTHESIA.
[2020-09-05] MEDS: meperidine/PF 25mg/ml syringe IV PRN ×2 (16:34→16:46)
[2020-09-05] MEDS ORDERED: potassium CL 20mEq in D5-1/2NS 1,000 ML IV SCH (16:40)
--- NOTE | 2020-09-05 18:00 | NUR ---
PACU DISCHARGE CRITERIA MET, REPORT GIVEN TO FLOOR. DENIES PAIN OR DISCOMFORT, TRANSFERRED TO ROOM IN STABLE GOOD CONDITION.
--- NOTE | 2020-09-05 18:00 | NUR ---
Patient in room MED 310. I have received report from JUSTA Almanza and had the opportunity to ask questions and assume patient care.
--- NOTE | 2020-09-05 18:30 | NUR ---
Problems reprioritized. Patient report given, questions answered & plan of care reviewed with JUSTA Gardner.
--- NOTE | 2020-09-05 18:31 | NUR ---
Patient in room MED 310. I have received report from TAY MARR and had the opportunity to ask questions and assume patient care. Addendum: 09/06/20 at 0347 by Kendra Jimenez RN RECEIVED REPORT FROM LORA MARR
[2020-09-05] MEDS: HYDROmorphone 1 mg/ml syringe IV PRN (19:15)
--- NOTE | 2020-09-05 23:00 | NUR ---
PATIENT REFUSES TO WEAR OX SATURATION PROBE ON FINGER. RN GAVE ALTERNATIVE OF THE EAR PROBE. PATIENT REFUSED. RN EDUCATED PATIENT
[2020-09-05] MEDS: HYDROcodone/acetaminophen 10/325mg tab PO PRN (23:33)
[2020-09-05] MEDS: ceFAZolin 1GM/D5W- ADD-VANTAGE 50 ML IV SCH (23:35)
[2020-09-06] VITALS: BP 132/65
--- NOTE | 2020-09-06 00:05 | NUR ---
PATIENT BLADDER SCAN POST F/C REMOVAL, NO URINE OUTPUT SINCE. 177 ML IN BLADDER SCAN. NO S/C OF COMPLICATIONS
[2020-09-06] MEDS: HYDROmorphone 1 mg/ml syringe IV PRN ×3 (00:29→10:30)
[2020-09-06 01:00] VITALS: BP 133/64
[2020-09-06 02:00] VITALS: BP 115/56
[2020-09-06 03:00] VITALS: BP 112/59
--- NOTE | 2020-09-06 06:07 | NUR ---
Problems reprioritized. Patient report given, questions answered & plan of care reviewed with LORA MARR.
--- NOTE | 2020-09-06 06:10 | NUR ---
Patient in room MED 318. I have received report from JUSTA Gardner and had the opportunity to ask questions and assume patient care.
[2020-09-06 07:00] VITALS: BP 131/60
[2020-09-06 07:08] LABS: BASOPHILS % (AUTO) 0.3 % (0-1); EOSINOPHILS # (AUTO) 0.1 X10'3 (0-0.9); EOSINOPHILS % (AUTO) 0.7 % (0-6); HEMATOCRIT 33.9 % (35.0-45.0); HEMOGLOBIN 10.9 g/dl (12.0-16.0); LYMPHOCYTES # (AUTO) 0.8 X10'3 (1.1-4.8); LYMPHOCYTES % (AUTO) 6.5 % (21-51); MEAN CORPUSCULAR HEMOGLOBIN 28.5 PG (27.0-31.0); MEAN CORPUSCULAR VOLUME 89.1 FL (78-98); MEAN PLATELET VOLUME 9.9 FL (7.4-10.4); MONOCYTES # (AUTO) 1.1 X10'3 (0-0.9); MONOCYTES % (AUTO) 8.2 % (2-12); NEUTROPHILS % (AUTO) 84.3 % (42-75); PLATELET COUNT 272 X10'3 (140-440); RED BLOOD COUNT 3.81 X10'6 (4.20-5.60); RED CELL DISTRIBUTION WIDTH 15.7 % (11.5-14.5)
[2020-09-06 07:20] LABS: ALBUMIN 3.4 G/DL (3.4-5.0); ANION GAP 11 (8-16); BLOOD UREA NITROGEN 18 MG/DL (7-18); CALCIUM 8.5 MG/DL (8.5-10.1); CHLORIDE 104 MMOL/L (99-107); GLUCOSE 124 MG/DL (70-104); POTASSIUM 3.8 MMOL/L (3.5-5.1); SODIUM 141 MMOL/L (135-145); TOTAL CARBON DIOXIDE 26.5 MMOL/L (24-32); eGFR 45 ML/MIN
[2020-09-06] MEDS: ceFAZolin 1GM/D5W- ADD-VANTAGE 50 ML IV SCH (07:43)
[2020-09-06] MEDS: HYDROcodone/acetaminophen 10/325mg tab PO PRN (07:44)
[2020-09-06] MEDS ORDERED: nitroGLYCERIN 0.4mg SUBLingual tab SL PRN (12:00)
[2020-09-06] MEDS ORDERED: albuterol 2.5 MG/3 ML nebule NEB PRN (12:10)
[2020-09-06 13:17] VITALS: BP 115/48
--- NOTE | 2020-09-06 15:08 | NUR ---
Patient stable for discharge per orders. Discharge instructions discussed with patient and all questions answered. New RX phoned to [facility] on [address] [place]. PIV taken out, cannula intact, Pt beverley. well. All personal belongings accounted for and taken by the patient. Patient wheeled to front of lobby where private vehicle was waiting.
[2020-09-06] MEDS ORDERED: carvedilol 6.25mg tablet PO SCH (20:00)
[2020-09-06] MEDS ORDERED: metFORMIN 500mg tablet PO SCH (20:00)
[2020-09-06] MEDS ORDERED: budesonide 0.5mg/2ml UD nebule IH SCH (20:00)
[2020-09-07] MEDS ORDERED: atorvastatin 20mg tablet PO SCH (08:00)
[2020-09-07] MEDS ORDERED: levoTHYROXINE 112mcg tablet PO SCH (08:00)
[2020-09-07] MEDS ORDERED: glipizide 5mg tablet PO SCH (08:00)
[2020-09-07] MEDS ORDERED: HYDROchlorothiazide 12.5mg capsule PO SCH (08:00)
[2020-09-07] MEDS ORDERED: furosemide 20MG tablet PO SCH (08:00)
[2020-09-07] MEDS ORDERED: clopidogrel 75mg tablet PO SCH (08:00)
[2020-09-07] MEDS ORDERED: cholecalciferol (vitamin D3) 1,000 unit (25mcg) tablet PO SCH (08:00)
[2020-09-07] MEDS ORDERED: aspirin 81mg tablet.DR PO SCH (08:00)
[2020-09-07] MEDS ORDERED: losartan 50mg tablet PO SCH (08:00)
--- NOTE | 2020-09-09 15:18 | NUR ---
CASE MANAGEMENT DISCHARGE FOLLOW UP: Spoke with pt via telephone. Reports that she is "hanging in there", reports pain 12/03, taking Hawthorn which helps a little, states dressings to abd CDI; denies CP, SOB, fever/chills, s/sx of infection. Verbalizes understanding of s/sx requiring further evaluation/emergent assistance. Verbalizes understanding of medications. Verbalizes compliance with MD discharge instructions. Verbalizes understanding of the importance in making/keeping follow-up appointments, will see surgeon on 09/11/20. States no further questions/concerns at this time.
== END 2020-09-06 15:08 | disposition home or self-care (01) ==
LOC: PAS 08:57 → PAS IN 16:37 → MED 3N 17:50
PROVIDERS: ADMIT Surgery; ATTEND Surgery
DX: K43.2 Incisional hernia without obstruction or gangrene (principal); Z20.822 Contact with and (suspected) exposure to COVID-19; F17.200 Nicotine dependence, unspecified, uncomplicated; Z90.710 Acquired absence of both cervix and uterus
CPT/HCPCS: 36415; 49654; 71046; 80047; 80048; 80053; 82948; 85025; 85610; 85730; 94640; 94760; 96365; 96366; 96375; 96376; C1758; C1781; G0378; J0131; J0690; J1100; J1170; J2175; J2250; J2405; J2704; J2710; J3010; J3490; U0003; U0005; A4215; A4618; J7120

== ENCOUNTER 2020-09-16 16:21 | Emergency (ER) | payer MEDICARE, MEDICAID ==
[~2020-09-16] VITALS: Ht 167.6 cm; Wt 84.1 kg
[~2020-09-16 16:21] MED LIST changes: -DOCUMENT DATE & TIME OF BETA-BLOCKER PO ONE; -albuterol 2.5 MG/3 ML nebule NEB ONE; -famotidine 20mg tablet PO ONE; -ringers solution, lacted 1,000 ML IV SCH
[2020-09-16 16:26] VITALS: BP 150/64
[2020-09-16] MEDS ORDERED: morphine 4 MG/ML inj SYRINge IV PRN (16:35)
[2020-09-16] MEDS ORDERED: ondansetron/PF 4mg/2ml inj IV ONE (16:35)
[2020-09-16] MEDS ORDERED: famotidine/PF 10 mg/ml inj IV ONE (16:35)
[2020-09-16 17:04] LABS: BASOPHILS # (AUTO) 0.1 X10'3 (0-0.2); BASOPHILS % (AUTO) 0.5 % (0-1); EOSINOPHILS # (AUTO) 0.7 X10'3 (0-0.9); EOSINOPHILS % (AUTO) 4.9 % (0-6); HEMATOCRIT 34.5 % (35.0-45.0); HEMOGLOBIN 11.3 g/dl (12.0-16.0); LYMPHOCYTES # (AUTO) 1.9 X10'3 (1.1-4.8); LYMPHOCYTES % (AUTO) 14.1 % (21-51); MEAN CORPUSCULAR HEMOGLOBIN 28.4 PG (27.0-31.0); MEAN CORPUSCULAR HGB CONC 32.7 g/dL (33.0-36.5); MEAN CORPUSCULAR VOLUME 87.1 FL (78-98); MEAN PLATELET VOLUME 9.4 FL (7.4-10.4); MONOCYTES # (AUTO) 0.7 X10'3 (0-0.9); MONOCYTES % (AUTO) 5.4 % (2-12); NEUTROPHILS # (AUTO) 10.2 X10'3 (1.8-7.7); NEUTROPHILS % (AUTO) 75.1 % (42-75); PLATELET COUNT 454 X10'3 (140-440); RED BLOOD COUNT 3.96 X10'6 (4.20-5.60); WHITE BLOOD COUNT 13.6 X10'3 (4.5-11.0)
[2020-09-16 17:19] LABS: ALANINE AMINOTRANSFERASE 22 U/L (12-78); ALBUMIN 3.3 G/DL (3.4-5.0); ALBUMIN/GLOBULIN RATIO 0.8 (1.1-1.5); ALKALINE PHOSPHATASE 71 IU/L (46-116); ANION GAP 11 (8-16); ASPARTATE AMINO TRANSFERASE 16 U/L (10-37); BILIRUBIN,TOTAL 0.1 MG/DL (0.1-1.0); BLOOD UREA NITROGEN 20 MG/DL (7-18); CHLORIDE 101 MMOL/L (99-107); CREATININE 1.11 MG/DL (0.40-0.90); GLUCOSE 170 MG/DL (70-104); POTASSIUM 3.2 MMOL/L (3.5-5.1); SODIUM 142 MMOL/L (135-145); TOTAL CARBON DIOXIDE 29.8 MMOL/L (24-32); TOTAL PROTEIN 7.5 G/DL (6.4-8.2); eGFR 50 ML/MIN
[2020-09-16] MEDS ORDERED: nitroGLYCERIN 0.4mg SUBLingual tab SL PRN (17:35)
[2020-09-16] MEDS ORDERED: LIDOcaine Viscous 15ml cup MM ONE (18:40)
[2020-09-16] MEDS ORDERED: sucralfate 1gm/10ml UD suspension PO STA (18:40)
[2020-09-16] MEDS ORDERED: mag hydrox/Alum hydrox/simeth 30ml oral suspension PO ONE (18:40)
== END 2020-09-16 19:32 | disposition home or self-care (01) ==
LOC: ER 16:21
DX: G89.18 Other acute postprocedural pain (principal); R06.02 Shortness of breath; R07.89 Other chest pain; I25.2 Old myocardial infarction; Z98.890 Other specified postprocedural states; Z88.8 Allergy status to other drugs, medicaments and biological substances; Z79.82 Long term (current) use of aspirin; Z79.899 Other long term (current) drug therapy
CPT/HCPCS: 36415; 71045; 80053; 83880; 84484; 85025; 93005; 99285

== ENCOUNTER → 2021-01-29 | Day surgery (SDC) | payer MEDICARE, MEDICAID ==
[2021-01-23 14:21] LABS: BASOPHILS # (AUTO) 0.1 X10'3 (0-0.2); BASOPHILS % (AUTO) 0.5 % (0-1); EOSINOPHILS # (AUTO) 0.3 X10'3 (0-0.9); EOSINOPHILS % (AUTO) 2.6 % (0-6); LYMPHOCYTES # (AUTO) 1.8 X10'3 (1.1-4.8); LYMPHOCYTES % (AUTO) 15.6 % (21-51); MEAN CORPUSCULAR HEMOGLOBIN 30.3 PG (27.0-31.0); MEAN CORPUSCULAR HGB CONC 33.3 g/dL (33.0-36.5); MEAN PLATELET VOLUME 9.8 FL (7.4-10.4); MONOCYTES # (AUTO) 0.9 X10'3 (0-0.9); MONOCYTES % (AUTO) 7.7 % (2-12); NEUTROPHILS # (AUTO) 8.4 X10'3 (1.8-7.7); NEUTROPHILS % (AUTO) 73.6 % (42-75); PRE OP HEMATOCRIT 33.3 % (35.0-45.0); PRE OP HEMOGLOBIN 11.1 g/dL (12.0-16.0); PRE OP PLATELET COUNT 288 X10'3 (140-440); RED BLOOD COUNT 3.66 X10'6 (4.20-5.60); RED CELL DISTRIBUTION WIDTH 14.7 % (11.5-14.5)
[2021-01-23 14:38] LABS: ALBUMIN 3.8 G/DL (3.4-5.0); ALKALINE PHOSPHATASE 70 IU/L (46-116); BLOOD UREA NITROGEN 24 MG/DL (7-18); BUN/CREATININE RATIO 17.6 (6.6-38.0); CALCIUM 9.6 MG/DL (8.5-10.1); CHLORIDE 112 MMOL/L (99-107); CREATININE 1.36 MG/DL (0.40-0.90); PRE OP ALT 19 U/L (30-65); PRE OP ANION GAP 13 (8-16); PRE OP AST 13 U/L (10-37); PRE OP BILIRUB, TOTAL 0.2 MG/DL (0.0-1.0); PRE OP GLUCOSE 89 MG/DL (70-104); PRE OP POTASSIUM 3.4 MMOL/L (3.4-5.1); PRE OP SODIUM 148 MMOL/L (135-145); TOTAL PROTEIN 7.5 G/DL (6.4-8.2); eGFR 39 ML/MIN
[~2021-01-29] VITALS: Ht 167.6 cm; Wt 78.0 kg
[~2021-01-29] MED LIST changes: +DOCUMENT DATE & TIME OF BETA-BLOCKER PO ONE; +HYDROcodone/acetaminophen 5mg/325mg tablet PO ONE; +albuterol 2.5 MG/3 ML nebule NEB PRN; +cefazolin/dext.iso 2gm/100ml IV ONE; +famotidine 20mg tablet PO ONE; -fish oil; +fish oil PO; +iohexol 300mg/ml 100ml inj. ONE; +ringers solution, lacted 1,000 ML IV SCH
[2021-01-29 12:31] VITALS: BP 143/70
[2021-01-29 12:34] VITALS: BP 143/70
[2021-01-29 12:46] VITALS: BP 143/70
[2021-01-29 14:08] LABS: PARTIAL THROMBOPLASTIN TIME 26 SECONDS (22-32)
== END | disposition home or self-care (01) ==
LOC: PRE-OP 10:50
PROVIDERS: ATTEND Surgery
DX: K43.2 Incisional hernia without obstruction or gangrene (principal); Z53.8 Procedure and treatment not carried out for other reasons; G47.30 Sleep apnea, unspecified; I10 Essential (primary) hypertension; I25.2 Old myocardial infarction; E03.9 Hypothyroidism, unspecified; F40.240 Claustrophobia; K21.9 Gastro-esophageal reflux disease without esophagitis; M41.9 Scoliosis, unspecified; E11.40 Type 2 diabetes mellitus with diabetic neuropathy, unspecified; F17.210 Nicotine dependence, cigarettes, uncomplicated; Z86.19 Personal history of other infectious and parasitic diseases; Z20.822 Contact with and (suspected) exposure to COVID-19; Z79.899 Other long term (current) drug therapy; Z79.01 Long term (current) use of anticoagulants; Z95.5 Presence of coronary angioplasty implant and graft; Z95.810 Presence of automatic (implantable) cardiac defibrillator; Z87.442 Personal history of urinary calculi; Z98.890 Other specified postprocedural states
CPT/HCPCS: 36415; 71046; 74178; 80053; 82948; 85025; 85610; 85730; Q9967; U0003; U0005; J7120

== ENCOUNTER 2021-02-08 15:18 | Inpatient (IN) | payer MEDICARE, MEDICAID ==
[2021-02-07] VITALS (25 sets, daily range): BP systolic 116–157; BP diastolic 44–89
[2021-02-07 09:14] LABS: BASOPHILS # (AUTO) 0.1 X10'3 (0-0.2); BASOPHILS % (AUTO) 0.8 % (0-1); EOSINOPHILS # (AUTO) 0.2 X10'3 (0-0.9); EOSINOPHILS % (AUTO) 2.4 % (0-6); LYMPHOCYTES # (AUTO) 1.7 X10'3 (1.1-4.8); LYMPHOCYTES % (AUTO) 16.4 % (21-51); MEAN CORPUSCULAR HEMOGLOBIN 30.9 PG (27.0-31.0); MEAN CORPUSCULAR HGB CONC 34.3 g/dL (33.0-36.5); MEAN PLATELET VOLUME 10.1 FL (7.4-10.4); MONOCYTES # (AUTO) 0.7 X10'3 (0-0.9); MONOCYTES % (AUTO) 6.7 % (2-12); NEUTROPHILS # (AUTO) 7.8 X10'3 (1.8-7.7); NEUTROPHILS % (AUTO) 73.7 % (42-75); PRE OP HEMATOCRIT 34.8 % (35.0-45.0); PRE OP HEMOGLOBIN 11.9 g/dL (12.0-16.0); PRE OP PLATELET COUNT 304 X10'3 (140-440); RED BLOOD COUNT 3.86 X10'6 (4.20-5.60); RED CELL DISTRIBUTION WIDTH 14.3 % (11.5-14.5)
[2021-02-07 11:03] LABS: PARTIAL THROMBOPLASTIN TIME 25 SECONDS (22-32)
[2021-02-07 11:55] LABS: ANION GAP 13 (8-16); BLOOD UREA NITROGEN 25 MG/DL (7-18); BUN/CREATININE RATIO 19.1 (6.6-38.0); CHLORIDE 106 MMOL/L (99-107); CREATININE 1.31 MG/DL (0.40-0.90); GLUCOSE 94 MG/DL (70-104); SODIUM 142 MMOL/L (135-145); TOTAL CARBON DIOXIDE 23.4 MMOL/L (24-32); eGFR 41 ML/MIN
[2021-02-07 11:56] LABS: ALANINE AMINOTRANSFERASE 20 U/L (12-78); ALBUMIN 3.8 G/DL (3.4-5.0); ALKALINE PHOSPHATASE 62 IU/L (46-116); ASPARTATE AMINO TRANSFERASE 14 U/L (10-37); BILIRUBIN,TOTAL 0.2 MG/DL (0.1-1.0); CALCIUM 9.7 MG/DL (8.5-10.1); TOTAL PROTEIN 7.6 G/DL (6.4-8.2)
[2021-02-07 11:57] LABS: POTASSIUM 2.8 MMOL/L (3.5-5.1)
[2021-02-07 13:25] LABS: ISTAT CREATININE 1.2 mg/dL (0.6-1.1); ISTAT HGB 11.9 g/dl (12.0-16.0); ISTAT IONIZED CALCIUM 1.23 mmol/L (1.03-1.32); ISTAT K 4.1 mmol/L (3.5-5.1); POC BUN/CREATININE RATIO 18.3 (6.6-38.0)
--- NOTE | 2021-02-07 14:03 | NUR ---
Received from OR via [facility] IN STABLE CONDITION , accompanied by Anesthesiologist and INSTRUMENT SPECIALIST report given by INSTRUMENT SPECIALIST AND Anesthesiolgist. Addendum: 02/07/21 at 1405 by Deepti Ortiz RN Amended: Links added.
[2021-02-07] MEDS: ceFAZolin/D5W- 1GM premix 50 ML IV SCH ×2 (16:00→23:49)
--- NOTE | 2021-02-07 16:46 | NUR ---
PATIENT DISCHARGED FROM PACU IN STABLE CONDITION AFTER REPORT GIVEN TO EDIN MARR. PATIENT TRANSFERRED TO ROOM [facility] VIA [facility]LO OROZCO RN X2, Addendum: 02/07/21 at 1717 by Deepti Ortiz RN Amended: Links added.
--- NOTE | 2021-02-07 17:00 | NUR ---
Patient transfer from post op in stable condition. post op vital q 15 min not taken because patient was in recovery room for extended period of time. Patient came to the unit stable. Vital sign are : 130/44,pulse:57, ,So2 : 98%
[2021-02-07] MEDS: HYDROmorphone inj. 0.5 MG/0.5 ML DISP.SYRIN IV PRN ×2 (17:55→22:32)
[2021-02-07] MEDS: HYDROcodone/acetaminophen 10/325mg tab PO PRN (20:49)
[2021-02-07] MEDS: gabapentin 400mg capsule PO SCH ×2 (22:32→23:48)
[~2021-02-08] VITALS: Ht 167.6 cm; Wt 78.0 kg
[2021-02-08] MEDS: HYDROcodone/acetaminophen 10/325mg tab PO PRN ×4 (00:46→21:14)
--- NOTE | 2021-02-08 01:22 | NUR ---
[facility] will report to beth MARR to continue at 0800 02/08
[2021-02-08] MEDS: HYDROmorphone inj. 0.5 MG/0.5 ML DISP.SYRIN IV PRN ×2 (02:33→08:49)
--- NOTE | 2021-02-08 06:30 | NUR ---
Patient in room [facility] 347. I have received report from JUSTA COLEMAN and had the opportunity to ask questions and assume patient care.
[2021-02-08 07:00] VITALS: BP 99/60
[2021-02-08] MEDS: gabapentin 400mg capsule PO SCH ×3 (08:45→23:17)
[2021-02-08 11:00] VITALS: BP 97/43
--- NOTE | 2021-02-08 11:30 | NUR ---
Pt spitting clear fluid into trash can with no retching present. Continued to ambulate 400 feet without further spitting of fluid. Tolerated amb well even asking to go further. returned to bed with instructions to log role to back.
[~2021-02-08 15:18] MED LIST changes: +0.9 % SODIUM CHLORIDE 10 ML VIAL ONE; +BUPIVAcaine/PF 2.5 mg/ml (0.25%) 30ml vial ONE; -HYDROcodone/acetaminophen 5mg/325mg tablet PO ONE; +LIDOcaine 2% (20mg/ml) 5ml vial ONE; +LOSA100T57 PO; -LOSA1TAB41 PO; +METF-436 PO; -METF-900 PO; +OMEG1CAP2 PO; +POTASSIUM CL IV ONE; +Potassium Cl 40 MEQ in sodium chloride 0.45% 500 ML IV ONE; +[UNRECOGNIZED DRUG - OTHER] IV ONE; +acetaminophen 1,000mg/100ml IV 100 ML IV PRN; +ceFAZolin inj. 1,000 MG in dextrose 5%-water 50ml 50 ML IV SCH; -cefazolin/dext.iso 2gm/100ml IV ONE; +cefazolin/dext.iso 2gm/50ml 50 ML IV ONE; +dexamethasone sod phosphate 4mg/ml inj. ONE; +dextrose 5%-1/2 normal saline 1,000 ML IV SCH; +ePHEDrine 50MG/ML INJ. ONE; +fentaNYL /PF 50mcg/ml 5ml ampule ONE; -fish oil PO; +hydrALAZINE 20mg/ml inj. IV PRN; -iohexol 300mg/ml 100ml inj. ONE; +labetalol 20mg/4ml (5mg/ml) syringe IV PRN; +meperidine/PF 25mg/ml syringe IV PRN; +midazolam 1 mg/ML 2ml injection ONE; +morphine 2 MG/ML inj. syringe IV PRN; +morphine 4 MG/ML inj SYRINge IV PRN; +ondansetron/PF 4mg/2ml inj IV PRN; +ondansetron/PF 4mg/2ml inj ONE; +oxyCODONE IR 5mg (immed. release) tablet PO ONE; +proCHLORperazine 10 MG/2 ml inj IV PRN; +propofol inj 20 ML IV ONE; +rocuronium 10mg/ml inj IV ONE; +sevoflurane 250ml liquid IH ONE; +sugammadex 200mg/2ml injection IV ONE
[2021-02-08 18:00] VITALS: BP 116/38
--- NOTE | 2021-02-08 18:40 | NUR ---
Patient in room [facility] 347. I have received report from JUSTA Cobb and had the opportunity to ask questions and assume patient care.
--- NOTE | 2021-02-08 18:40 | NUR ---
Problems reprioritized. Patient report given, questions answered & plan of care reviewed with JUSTA Olivera.
[2021-02-08] MEDS: carvedilol 6.25mg tablet PO SCH (20:53)
[2021-02-08] MEDS: magnesium hydroxide 30ml (MOM) UD suspension PO SCH (20:54)
[2021-02-08] MEDS: enoxaparin 40mg/0.4ml syringe SUBCUT SCH (20:54)
[2021-02-09] VITALS: BP 111/43
[2021-02-09] MEDS: HYDROcodone/acetaminophen 10/325mg tab PO PRN ×4 (02:54→20:15)
--- NOTE | 2021-02-09 06:54 | NUR ---
Problems reprioritized. Patient report given, questions answered & plan of care reviewed with JUSTA Ramesh.
[2021-02-09 08:00] VITALS: BP_SYST 106; BP_SYST 108; BP_SYST 112; BP_DIAS 37; BP_DIAS 48; BP_DIAS 52
[2021-02-09] MEDS: carvedilol 6.25mg tablet PO SCH ×2 (08:00→20:15)
[2021-02-09] MEDS: magnesium hydroxide 30ml (MOM) UD suspension PO SCH ×2 (08:00→20:00)
[2021-02-09] MEDS: levoTHYROXINE 112mcg tablet PO SCH (08:17)
[2021-02-09] MEDS: gabapentin 400mg capsule PO SCH ×2 (08:18→16:26)
[2021-02-09] MEDS: clopidogrel 75mg tablet PO SCH (08:18)
[2021-02-09 11:00] VITALS: BP 115/42
[2021-02-09 18:00] VITALS: BP 126/51
--- NOTE | 2021-02-09 18:40 | NUR ---
Problems reprioritized. Patient report given, questions answered & plan of care reviewed with Chris MARR.
--- NOTE | 2021-02-09 19:00 | NUR ---
Patient in room [facility] 347. I have received report from Chloe MARR and had the opportunity to ask questions and assume patient care.
[2021-02-09] MEDS: enoxaparin 40mg/0.4ml syringe SUBCUT SCH (20:15)
[2021-02-10] VITALS: BP 128/60
[2021-02-10] MEDS: HYDROcodone/acetaminophen 10/325mg tab PO PRN ×4 (00:34→13:52)
--- NOTE | 2021-02-10 06:30 | NUR ---
Patient in room [facility] 347. I have received report from Angelina and had the opportunity to ask questions and assume patient care.
[2021-02-10 07:01] VITALS: BP 139/39
--- NOTE | 2021-02-10 07:06 | NUR ---
Problems reprioritized. Patient report given, questions answered & plan of care reviewed with Angelina MARR.
[2021-02-10] MEDS: levoTHYROXINE 112mcg tablet PO SCH (07:43)
[2021-02-10] MEDS: magnesium hydroxide 30ml (MOM) UD suspension PO SCH (08:00)
[2021-02-10] MEDS: carvedilol 6.25mg tablet PO SCH (08:52)
[2021-02-10] MEDS: gabapentin 400mg capsule PO SCH ×2 (08:53)
[2021-02-10] MEDS: clopidogrel 75mg tablet PO SCH (08:53)
--- NOTE | 2021-02-10 11:56 | NUR ---
Problems reprioritized. Patient report given, questions answered & plan of care reviewed with
[2021-02-10 12:00] VITALS: BP 127/65
--- NOTE | 2021-02-10 15:15 | NUR ---
Patient stable and appropriate for discharge home. IV removed, all belongings taken from room. New prescription called into preferred pharmacy. All discharge instructions and education given and reviewed with patient, all questions answered. Patient sent home with abdominal binder.
== END 2021-02-10 15:16 | disposition home or self-care (01) | DRG 355 ==
LOC: PAS 15:18 → SUR 3N 15:18 → PAS 23:59 → SUR 3N 02-09 08:35 → PAS 02-09 23:59
PROVIDERS: ADMIT Surgery; ATTEND Surgery
PROC: 8E0W0CZ Robotic Assisted Procedure of Trunk Region, Open Approach (ICD-10-PCS; 2021-02-07)
PROC: 0WUF0JZ Supplement Abdominal Wall with Synthetic Substitute, Open Approach (ICD-10-PCS; principal; 2021-02-07 10:22)
DX: K43.2 Incisional hernia without obstruction or gangrene (principal); F17.210 Nicotine dependence, cigarettes, uncomplicated; B19.20 Unspecified viral hepatitis C without hepatic coma; K21.9 Gastro-esophageal reflux disease without esophagitis; G47.33 Obstructive sleep apnea (adult) (pediatric); I10 Essential (primary) hypertension; E03.9 Hypothyroidism, unspecified; E11.42 Type 2 diabetes mellitus with diabetic polyneuropathy; Z82.49 Family history of ischemic heart disease and other diseases of the circulatory system; Z83.3 Family history of diabetes mellitus
CPT/HCPCS: 36415; 76937; 80047; 80053; 82948; 85025; 85610; 85730; 86885; 86900; 86901; 87635; 93005; 94640; A4215; A4618; C1758; C1781; C9399; C9803; G0378; J0131; J0690; J1100; J1170; J1650; J2001; J2175; J2250; J2270; J2405; J2704; J3010; J3480; J3490; J7120